=== PATIENT | female | born 1995 | race Caucasian/White ===

== ENCOUNTER 2016-11-16 11:54 | Inpatient (IN) | payer MEDICAID ==
[2016-11-16 12:03] VITALS: O2SAT 100
--- NOTE | 2016-11-16 13:32 | ED PDOC ---
HPI: Psych/Substance Abuse Time Seen by Provider: 11/16/16 12:14 Chief Complaint (Nursing): Psychiatric Evaluation Chief Complaint (Provider): Medication Refill History Per: Patient History/Exam Limitations: no limitations Additional Complaint(s): Kassie Nair, a 21 year old female, with a past medical history of depression and bipolar disorder was sent into the ED from [facility] stating that she wants a refill of the 3 medications she takes for her bipolar disorder. Patient states that she has not taken her medication in a week and can feel herself decompensating. Denies HI/SI ideations. Patient has no other medical complaints and states that she is currently just hungry and thirsty. Past Medical History Reviewed: Historical Data, Nursing Documentation, Vital Signs Vital Signs: Last Vital Signs Temp 98.5 F 11/16/16 11:58 Pulse 72 11/16/16 11:58 Resp 16 11/16/16 11:58 BP 100/58 L 11/16/16 11:58 Pulse Ox 100 11/16/16 11:58 - Medical History PMH: Bipolar Disorder, Depression, Schizophrenia - Family History Family History: States: Unknown Family Hx - Immunization History Hx Tetanus Toxoid Vaccination: No Hx Influenza Vaccination: No Hx Pneumococcal Vaccination: No - Home Medications Home Medications: Ambulatory Orders Medication Instructions Recorded No Known Home Med 11/12/16 - Allergies Allergies/Adverse Reactions: Allergies Allergy/AdvReac Type Severity Reaction Status Date / Time No Known Allergies Allergy Verified 11/12/16 12:49 Review of Systems Constitutional: Negative for: Fever Cardiovascular: Negative for: Chest Pain Respiratory: Negative for: Shortness of Breath Gastrointestinal: Negative for: Abdominal Pain Physical Exam - Reviewed Nursing Documentation Reviewed: Yes Vital Signs Reviewed: Yes - Physical Exam Appears: Positive for: Non-toxic, No Acute Distress Head Exam: Positive for: ATRAUMATIC, NORMAL INSPECTION, NORMOCEPHALIC Skin: Positive for: Normal Color, Warm, Dry Eye Exam: Positive for: Normal appearance, EOMI, PERRL ENT: Positive for: Normal ENT Inspection. Negative for: Nasal Congestion, Pharyngeal Erythema Neck: Positive for: Normal, Painless ROM, Supple Cardiovascular/Chest: Positive for: Regular Rate, Rhythm, Chest Non Tender. Negative for: Tachycardia Respiratory: Positive for: Normal Breath Sounds. Negative for: Rhonchi, Wheezing, Respiratory Distress Gastrointestinal/Abdominal: Positive for: Normal Exam, Bowel Sounds, Soft. Negative for: Tenderness Back: Positive for: Normal Inspection. Negative for: L CVA Tenderness, R CVA Tenderness Extremity: Positive for: Normal ROM. Negative for: Tenderness, Pedal Edema, Deformity, Swelling Neurologic/Psych: Positive for: Alert, Oriented, Gait - Laboratory Results Result Diagrams: 11/16/16 15:10 11/16/16 15:10 - ECG O2 Sat by Pulse Oximetry: 100 (RA) Pulse Ox Interpretation: Normal Medical Decision Making Medical Decision Makin Initial Impression: 21 year old female presenting for medication refill Initial Plan: * crisis evaluation Crisis evaluated patient. Patient will be admitted. Labs ordered Labs normal. Scribe Attestation Documented by Consuelo Kelly acting as a scribe for Stephanie Walters PA-C. Scribe Attestation All medical record entries made by the Scribe were at my direction and personally dictated by me. I have reviewed the chart and agree that the record accurately reflects my personal performance of the history, physical exam, medical decision making, and the department course for this patient. I have also personally directed, reviewed, and agree with the discharge instructions and disposition. Disposition - Clinical Impression Clinical Impression: Schizoaffective disorder, bipolar type - Patient ED Disposition Is Patient to be Admitted: Yes - Disposition Disposition Time: 16:50 Condition: STABLE - Pt Status Changed To: Hospital Disposition Of: Inpatient - Admit Certification Admit to Inpatient:: After my assessment, the patient will require hospitalization for at least two midnights. This is because of the severity of symptoms shown, intensity of services needed, and/or the medical risk in this patient being treated as an outpatient.
[2016-11-16 15:20] LABS: RBC URINE 3 /hpf (0-3); URINE BACTERIA RARE (<OCC); URINE BILIRUBIN NEGATIVE (NEGATIVE); URINE BLOOD NEGATIVE (NEGATIVE); URINE COLOR YELLOW (YELLOW); URINE GLUCOSE (UA) 50 mg/dL (Normal); URINE KETONE NEGATIVE (NEGATIVE); URINE LEUKOCYTE ESTERASE NEG Leu/uL (Negative); URINE PROTEIN 100 mg/dL (NEGATIVE); URINE UROBILINOGEN 0.2-1.0 mg/dL (0.2-1.0); WBC URINE 3 /hpf (0-5)
[2016-11-16 15:23] LABS: BASO # 0.1 K/uL (0.0-0.2); BASO % 0.6 % (0.0-2.0); EOS # 0.1 K/uL (0.0-0.7); EOS % 0.9 % (0.0-4.0); LYMPH # 2.7 K/uL (1.0-4.3); LYMPH % 32.3 % (20.0-40.0); MEAN CELL VOLUME 90.1 fl (81.0-99.0); MEAN CORPUSCULAR HEMOGLOBIN 30.6 pg (27.0-31.0); MEAN CORPUSCULAR HGB CONC 33.9 g/dL (33.0-37.0); MONO # 0.6 K/uL (0.0-0.8); MONO % 7.7 % (0.0-10.0); NEUT # 4.9 K/uL (1.8-7.0); NEUT % 58.5 % (50.0-75.0); NRBC % 0.2 % (0.0-0.0); RED CELL DISTRIBUTION WIDTH 11.7 % (11.5-14.5); WHITE BLOOD COUNT 8.3 K/uL (4.8-10.8)
[2016-11-16 15:35] LABS: ALB/GLOB RATIO 1.3 (1.0-2.1); ALCOHOL SERUM < 10 mg/dl (0-10); ALKALINE PHOSPHATASE 58 U/L (38-126); ALT/SGPT 33 U/L (9-52); AST/SGOT 21 U/L (14-36); BILIRUBIN,TOTAL 0.9 mg/dl (0.2-1.3); BLOOD UREA NITROGEN 12 mg/dl (7-17); CARBON DIOXIDE 22 mmol/L (22-30); CHLORIDE 105 mmol/L (98-107); GFR AFRICAN-AMERICAN > 60; GLUCOSE,RANDOM 115 mg/dL (65-105); POTASSIUM 4.2 MMOL/L (3.6-5.0); SODIUM 139 mmol/l (132-148); TOTAL PROTEIN 7.5 G/DL (6.3-8.2)
[2016-11-16] MEDS ORDERED: Alum-Mag Hydrox-Simethicone Susp (30 mL) PO PRN (20:06)
[2016-11-16] MEDS ORDERED: DiphenhydrAMINE 50 mg/ml Inj IM PRN (20:06)
[2016-11-16] MEDS ORDERED: Magnesium Hydroxide Susp 30 ml UD PO PRN (20:06)
--- NOTE | 2016-11-16 21:06 | PCM.BM ---
<Patricia Pickering - Last Filed: 11/16/16 21:03> Treatment Plan Problems - Problems identified on initial assessmt Altered thought process Date Initiated: 11/16/16 Time Initiated: 21:11 Assessment reference: NA Status: Active Altered Sleep PAttern Date Initiated: 11/16/16 Time Initiated: 21:10 Assessment reference: NA Status: Active Treatment assets and liabiliti Patient Assests: ADL independent, physically healthy, good past tx response Patient Liabilities: live alone - Milieu Protocol Maintain good personal hygiene: daily Encourage regular showers, daily Remind patient to perform daily oral care, daily Assist patient to perform ADL's Maintain personal safety: every shift Educate patient to report safety concerns to staff, every shift Monitor environment for contraband/sharps Medication safety: Monitor for expected outcome, potential side effects: every shift, Assess barriers to learning: daily, Assess readiness for medication education: every shift Family Contact Family involvement: Family/SO is involved Family contact name: Ladarius Rubin -[phone] Discharge/Continuing Care - Education Needs Education Needs: Family Medication, Family Diagnosis/Disease Process, Family Coping Skills, Family Anger Management skills, Family Community resources, Family Activities of Daily Living, Family Pain, Family Health Practices/Safety, Family Personal Hygiene/Grooming, Family Aftercare Safety Plan, Patient Medication, Patient Diagnosis/Disease Process, Patient Coping Skills, Patient Anger Management skills, Patient Community resources, Patient Activities of Daily Living, Patient Pain, Patient Health Practices/Safety, Patient Personal Hygiene/Grooming, Patient Aftercare Safety Plan <HeatherLydia - Last Filed: 11/20/16 10:19> Treatment assets and liabiliti Patient Assests: adapts well, resourceful, ADL independent, physically healthy, good past tx response Patient Liabilities: live alone, poor support system Family Contact Family contact: Patient declines to allow family contact at present Family contact name: Ladarius Rubin -[phone] Family contacted how many times per week?: 1 Family contact comment: Patient has signed a 48 hour notice and is demanding discharge. Patient currently not agreeable to signing consent for family despite encouragement from staff. Psychologist Chief to continue to encourage family involvement for safe discharge planning. - Outside Agency Agency 1 Care involvment: Following patient during stay, Other Agency contact name: Prema Luciano Agency contact number: [phone] - Goals for Treatment Patient goals for treatment: Patient to continue stabilization on 3NP through medication managment and group/supportive therapy. Patient remains internally preoccupied, labile, intrusive and disorganized. Patient to be encouraged to attend 2-5 groups/weekly to develop effective coping skills, improve insight and promote compliance and reality testing. Patient has a 48 hour notice and will be screened by [facility] for involuntary tx. Discharge/Continuing Care - Education Needs Education Needs: Family Medication, Family Diagnosis/Disease Process, Family Coping Skills, Family Aftercare Safety Plan, Patient Medication, Patient Diagnosis/Disease Process, Patient Coping Skills, Patient Community resources, Patient Aftercare Safety Plan - Discharge Discharge Criteria: Tolerates medication w/o severe side effects, Free of Suicidal thoughts, Free of paranoid thoughts, Normal sleep pattern, Ability to care for self, Reduction of target symptoms, Other Discharge to:: Home - Treatment Team Participation Discussed with Family/SO: No Was Patient/Family/SO present at Treatment Team Meeting: No
--- NOTE | 2016-11-17 11:48 | PCM.PSYCH ---
Initial Psychiatric Evaluation - Initial Psychiatric Evaluation Type of Admission: Voluntary Legal Status: Capacity Chief Complaint (in patient's own words): can i go today? Patient's Reaction to Hospitalization: pt asking to leave History of Present Illness and Precipitating Events: 21 yo female with history of bipolar disorder. pt sent to ER from [facility]. apparently on haldol, seroquel, cogentin and depakote. pt apparently was away from her program and not adherent with medications. she return to [facility] and was acting aggressively. she was bizarre and appeared to be internally preoccupied. today she is refusing to engage in conversation. per crisis report: Patient is a 21 y/o , single, no children, resides with her mother. Pt was referred by [facility] due to manic behavior. Pt. was disreptuve, demanding money and food. Pt. was touching other patients, congregational preocuppied speaking negatively about the [employer] congregational, it was internal preocuppied. Pt. is not taking her medication and could not say the name of the medications. Kicking Machine Operator contacted patient's mother who stated that patient was living at her brother's apartment in [place], and returned to [place] as patient was not following up with her treatment. As per Ms. Rubin (patient's mother) Patient started to have aggressive reactions, as she is speaking to her, gets verbally abusive, and not following up with her treatment. Ms. Rubin believes that patient should be admitted for stabilization. Patient reported at time of assessment that she was at [facility] and was referred to the hospital for medication. Pt. denied si/hi , hallucinations or delusions. Pt. is alerted and oriented x3, Pt. is guarded and tense during the assessment , she agreed to sign in for voluntary admission , stating that she would sign in if the doctor recommends admission. Pt. admitted having suicidal Ideations in the past but denied any attempts of hurting herself. As per patient's mother Patient had a suicidal ideation in 2012 with plan to overdose. Current Medications: Active Medications Generic Name Dose Route Start Last Admin Trade Name Freq PRN Reason Stop Dose Admin Acetaminophen 650 mg 11/16/16 20:06 Tylenol 325mg Tab PO Q4 PRN Pain, moderate (4-7) Al Hydrox/Mg Hydrox/Simethicone 30 ml 11/16/16 20:06 Maalox Plus 30 Ml PO Q4 PRN Dyspepsia Diphenhydramine HCl 50 mg 11/16/16 20:06 Benadryl IM Q6 PRN Extrapyramidal S/S Unable PO Diphenhydramine HCl 50 mg 11/16/16 21:16 11/17/16 08:16 Benadryl PO 50 mg HS PRN Administration Insomnia Haloperidol 5 mg 11/16/16 20:06 11/17/16 08:16 Haldol PO 5 mg Q4 PRN Administration Agitation Haloperidol Lactate 5 mg 11/16/16 20:06 Haldol IM Q4 PRN Agitation, Unable to Take PO Lorazepam 2 mg 11/16/16 20:06 Ativan IM Q4 PRN Anxiety/Agitation,Unable PO Lorazepam 1 mg 11/16/16 21:16 11/16/16 21:26 Ativan PO 1 mg Q4 PRN Administration Anxiety/Agitation Magnesium Hydroxide 30 ml 11/16/16 20:06 Milk Of Magnesia PO HS PRN Constipation Past Psychiatric History - Past Psychiatric History Previous Treatment History: Inpatient Prior Professional Help: [facility], [facility] History of Abuse: does not want to give answers History of ETOH/Drug Use: uds is negative History of Family Illness: does not give answers Pertinent Medical Hx (Current Medical&Sleep Prob, Allergies): Allergies Allergy/AdvReac Type Severity Reaction Status Date / Time No Known Allergies Allergy Verified 11/12/16 12:49 Omeprazole [Omeprazole] 20 mg PO DAILY 11/16/16 Review of Systems - Psychiatric Psychiatric: As Per HPI Mental Status Examination - Personal Presentation Personal Presentation: Looks stated age - Affect Affect: Blunted - Motor Activity Motor Activity: Calm - Reliability in Providing Information Reliability in Providing Information: Poor, due to alteration in thoughts, Poor , due to altered mood - Speech Speech: Other (only gives brief answers) - Mood Mood: Depressed, Anxious - Formal Thought Process Formal Thought Process: No Impairment - Obsessions/Compulsions Obsessions: No Compulsions: No - Cognitive Functions Orientation: Person, Place, Situation Sensorium: Alert Attention/Concentration: Easily distracted Abstract Thinking: New Point Estimate of Intelligence: Average Judgement: Intact, as evidence by: Insight regarding need for hospitalization Additional comments: not cooperative - Risk Risk: Diminished functioning - Strength & Assets Inventory Strength & Assets Inventory: Intelligence DSM 5 DX - DSM 5 DSM 5 Diagnosis: bipolar disorder r/o schizoaffective disorder - Recommended/Plan of Treatment Treatment Recommendations and Plan of Treatment: admit to 3np for safety and observation gather collateral information pt agrees to restart prior medications disposition planning hospitalist consult Projected ELOS: 3-5 days Prognosis: fair
--- NOTE | 2016-11-17 18:00 | CP.PCM.CON ---
History of Present Illness - History of Present Illness History of Present Illness: 21 yo female with history of bipolar DO admitted in psyche unit because of aggressive behaviour. Review of Systems - Review of Systems All systems: reviewed and no additional remarkable complaints except (aside from those mentioned above, 12 point system review were negative by me) Past Patient History - Infectious Disease Hx of Infectious Diseases: None - Tetanus Immunizations Tetanus Immunization: Unknown - Past Social History Smoking Status: Never Smoked Alcohol: None Drugs: Denies - CARDIAC Hx Cardiac Disorders: No Hx Hypertension: No - PULMONARY Hx Respiratory Disorders: No Hx Tuberculosis: No - NEUROLOGICAL Hx Neurological Disorder: No HX Cerebrovascular Accident: No Hx Seizures: No - HEENT Hx HEENT Problems: No - RENAL Hx Chronic Kidney Disease: No - ENDOCRINE/METABOLIC Hx Endocrine Disorders: No - HEMATOLOGICAL/ONCOLOGICAL Hx Blood Disorders: No Hx Cancer: No Hx Human Immunodeficiency Virus (HIV): No - INTEGUMENTARY Hx Dermatological Problems: No - MUSCULOSKELETAL/RHEUMATOLOGICAL Hx Musculoskeletal Disorders: No - GASTROINTESTINAL Hx Gastrointestinal Disorders: No - GENITOURINARY/GYNECOLOGICAL Hx Genitourinary Disorders: No Hx Sexually Transmitted Disorders: No - PSYCHIATRIC Hx Anxiety: Yes Hx Bipolar Disorder: Yes Hx Emotional Abuse: ("I don't know") Hx Sexual Abuse: ("I don't know") Hx Substance Use: No - SURGICAL HISTORY Hx Surgeries: No - ANESTHESIA Hx Anesthesia: No Meds Allergies/Adverse Reactions: Allergies Allergy/AdvReac Type Severity Reaction Status Date / Time No Known Allergies Allergy Verified 11/12/16 12:49 - Medications Medications: Current Medications Acetaminophen (Tylenol 325mg Tab) 650 mg PO Q4 PRN PRN Reason: Pain, moderate (4-7) Al Hydrox/Mg Hydrox/Simethicone (Maalox Plus 30 Ml) 30 ml PO Q4 PRN PRN Reason: Dyspepsia Diphenhydramine HCl (Benadryl) 50 mg IM Q6 PRN PRN Reason: Extrapyramidal S/S Unable PO Diphenhydramine HCl (Benadryl) 50 mg PO HS PRN PRN Reason: Insomnia Last Admin: 11/17/16 08:16 Dose: 50 mg Divalproex Sodium (Depakote Er(Once Daily)) 500 mg PO HS PLACIDO Haloperidol (Haldol) 5 mg PO Q4 PRN PRN Reason: Agitation Last Admin: 11/17/16 08:16 Dose: 5 mg Haloperidol Lactate (Haldol) 5 mg IM Q4 PRN PRN Reason: Agitation, Unable to Take PO Lorazepam (Ativan) 2 mg IM Q4 PRN PRN Reason: Anxiety/Agitation,Unable PO Lorazepam (Ativan) 1 mg PO Q4 PRN PRN Reason: Anxiety/Agitation Magnesium Hydroxide (Milk Of Magnesia) 30 ml PO HS PRN PRN Reason: Constipation Quetiapine Fumarate (Seroquel) 50 mg PO HS PLACIDO Physical Exam - Constitutional Appears: No Acute Distress - Head Exam Head Exam: ATRAUMATIC - Eye Exam Eye Exam: absent: Scleral icterus - ENT Exam ENT Exam: Mucous Membranes Moist - Neck Exam Neck exam: Negative for: Meningismus - Respiratory Exam Respiratory Exam: absent: Rhonchi, Wheezes, Respiratory Distress - Cardiovascular Exam Cardiovascular Exam: REGULAR RHYTHM, +S1, +S2 - GI/Abdominal Exam GI & Abdominal Exam: Soft. absent: Tenderness - Rectal Exam Rectal Exam: Deferred - Extremities Exam Extremities exam: Negative for: pedal edema - Back Exam Back exam: NORMAL INSPECTION - Neurological Exam Neurological exam: Alert, Oriented x3 - Psychiatric Exam Psychiatric exam: Normal Affect Results - Vital Signs Recent Vital Signs: Last Vital Signs Temp 97.5 F L 11/17/16 09:00 Pulse 74 11/17/16 09:00 Resp 18 11/17/16 09:00 BP 111/64 11/17/16 09:00 Pulse Ox 100 11/16/16 17:38 - Labs Result Diagrams: 11/16/16 15:10 11/16/16 15:10 Assessment & Plan (1) Aggressive behavior Status: Acute Comment: psyche is managing
[2016-11-17] MEDS: Divalproex 500 mg ER (ONCE DAILY formulation) PO SCH (21:09)
--- NOTE | 2016-11-18 17:33 | PCM.PYCHPN ---
Psychiatric Progress Note - Psychiatric Progress Note Patient seen today, length of contact: chart review case discussed with team Patient Chief Complaint: was at program they told me I need to have my medications stabilized Medical Problems: per chart Diagnostic Results: per psychiatry per medicine per nursing per social work DSM 5 Symptoms Update: vacillations in mood lability in mood Medication Change: No Medical Record Reviewed: Yes Consults ordered or reviewed: pt seen by hospitalist Mental Status Examination - Cognitive Function Orientation: Person, Place, Situation Attention: Poor Concentration: Poor Association: Loose Fund of Knowledge: WNL Decription of patient's judgement and insights: impaired - Mood Mood: Depressed, Anxious - Affect Affect: Blunted - Speech Speech: Pressured - Formal Thought Process Formal Thought Process: No Impairment - Homicidal Ideation Homicidal Ideation: No Goal/Treatment Plan - Goal/Treatment Plan Need for Continued Stay: Remain at risks for inpatient hospitalization, Failed transitioning Progress Toward Problem(s) and Goals/Treatment Plan: inpt milieu pt submitted a 48 hr notice-was explained to patient in both ugandan and slovak the reason , purpose-up until 48 hours to make decision (within and by end of 48 hours) including possible calling of [facility] screeners for possible involuntary admission pt verbalized understanding and submitted signed form and was witnessed by this typewriters functional tester Estimated Date of D/C: 11/23/16 - Smoking Cessation Smoking Cessation Initiated: No Reason for not providing: deferred
[2016-11-18] MEDS: Divalproex 500 mg ER (ONCE DAILY formulation) PO SCH (21:25)
--- NOTE | 2016-11-19 15:09 | PCM.PYCHPN ---
Psychiatric Progress Note - Psychiatric Progress Note Patient seen today, length of contact: chart review case discussed with team Patient Chief Complaint: pt. is reported to have been exhibiting increased energy, walking running about unit, talking fast at times, being intrusive requiring redirection, pt received prns today. pt has submitted 48 hour notice which will end tomorrow early afternoon and defers recinding at the time of this writing. verbally agreeable to have medications adjusted. Problems Identified/Issues Discussed: lability in mood decreased insight and judgment Medical Problems: per chart Diagnostic Results: per psychiatry per medicine per nursing per social work DSM 5 Symptoms Update: continues to be labile requiring redirection and the receipt of prns today per nursing staff Medication Change: Yes ( am seroquel 25mg w/125mg divalproic increase pm dose seroquel to 100mg ) Medical Record Reviewed: Yes Consults ordered or reviewed: pt being followed by hospitalist Mental Status Examination - Cognitive Function Orientation: Person, Place, Situation Attention: Poor Concentration: Poor Association: Loose Fund of Knowledge: WNL Decription of patient's judgement and insights: impaired - Mood Additional comments: labile - Affect Additional comments: labile irritable at times - Speech Speech: Pressured - Formal Thought Process Formal Thought Process: Loosening of associations, Flight of ideas - Homicidal Ideation Homicidal Ideation: No Goal/Treatment Plan - Goal/Treatment Plan Need for Continued Stay: Remain at risks for inpatient hospitalization, Failed transitioning Progress Toward Problem(s) and Goals/Treatment Plan: inpt milieu vital signs and clinical observation per protocol and per status will start seroquel 25mg po am with divalproic acid 125mg and increase pm seroquel to 100mg obtain divalproic acid level in am [id number] with [facility] pt defers recinding 48 hour notice:pt submitted a 48 hr notice-was explained to patient in both [place] and [place] the reason , purpose-up until 48 hours to make decision (within and by end of 48 hours) including possible calling of [facility] screeners for possible involuntary admission pt verbalized understanding and submitted signed form and was witnessed by this database report writer Estimated Date of D/C: 11/23/16
[2016-11-19] MEDS: Divalproex 125 mg DR (BID formulation) PO SCH (16:59)
[2016-11-19] MEDS: Divalproex 500 mg ER (ONCE DAILY formulation) PO SCH (21:13)
[2016-11-20] MEDS: Divalproex 125 mg DR (BID formulation) PO SCH (08:17)
--- NOTE | 2016-11-20 09:49 | PCM.PYCHPN ---
Psychiatric Progress Note - Psychiatric Progress Note Patient seen today, length of contact: discussed with team Patient Chief Complaint: i will go today! Problems Identified/Issues Discussed: pt demanding to leave the hospital. she is running around in circles in the milieu. exposing her breasts to other pts. she continues to touch this brief writer when he tries to talk to the pt to explain the screening process. pt states "i will go when i want to go" she takes medications as prescribed. Medication Change: Yes (increase seroquel, check depakote level) Medical Record Reviewed: Yes Mental Status Examination - Cognitive Function Orientation: Person, Place, Situation Attention: Poor Concentration: Poor Association: Loose Fund of Knowledge: WNL Decription of patient's judgement and insights: poor insight and judgment - Mood Mood: Depressed, Anxious - Affect Affect: Blunted - Speech Speech: Pressured - Formal Thought Process Formal Thought Process: Loosening of associations, Flight of ideas Psychotic Thoughts and Behaviors: grandiose, sexually preoccupied/provocative, disorganized thoughts - Suicidal Ideation Suicidal Ideation: No - Homicidal Ideation Homicidal Ideation: No Goal/Treatment Plan - Goal/Treatment Plan Need for Continued Stay: Remain at risks for inpatient hospitalization, Failed transitioning Progress Toward Problem(s) and Goals/Treatment Plan: bipolar disorder, manic continue current treatment will check depakote and increase dose increase the seroquel disposition planning- 48 hr notice expires today, will screen for involuntary hospitalization as pt is a danger to self secondary to her manic symptoms. Estimated Date of D/C: 11/23/16
[2016-11-20 17:27] VITALS: BP 117/73; PULSE 77; RESP 16; TEMP 98.2
[2016-11-20] MEDS ORDERED: Potassium Chloride 20 mEq ER Tab PO ONE (18:55)
[2016-11-20] MEDS: Divalproex 500 mg ER (ONCE DAILY formulation) PO SCH (21:31)
--- NOTE | 2016-11-20 22:10 | CP.PCM.PN ---
Subjective - Date & Time of Evaluation Date of Evaluation: 11/20/16 Time of Evaluation: 22:06 - Subjective Subjective: Chest X Ray 20/11/16 No Infiltrate nor sign of active disease Ignacio Kim MD Objective - Vital Signs/Intake and Output Vital Signs (last 24 hours): Temp Pulse Resp BP Pulse Ox 98.2 F 77 16 117/73 100 11/20/16 17:00 11/20/16 17:00 11/20/16 17:00 11/20/16 17:00 11/16/16 17:38 - Medications Medications: Current Medications Acetaminophen (Tylenol 325mg Tab) 650 mg PO Q4 PRN PRN Reason: Pain, moderate (4-7) Al Hydrox/Mg Hydrox/Simethicone (Maalox Plus 30 Ml) 30 ml PO Q4 PRN PRN Reason: Dyspepsia Diphenhydramine HCl (Benadryl) 50 mg IM Q6 PRN PRN Reason: Extrapyramidal S/S Unable PO Diphenhydramine HCl (Benadryl) 50 mg PO HS PRN PRN Reason: Insomnia Last Admin: 11/20/16 14:22 Dose: 50 mg Diphenhydramine HCl (Benadryl) 50 mg PO Q6 PRN PRN Reason: Extrapyramidal Symptoms Last Admin: 11/19/16 06:07 Dose: 50 mg Divalproex Sodium (Depakote Er(Once Daily)) 500 mg PO HS [facility] Last Admin: 11/20/16 21:31 Dose: 500 mg Divalproex Sodium (Depakote Dr(*Bid*)) 125 mg PO DAILY [facility] Last Admin: 11/20/16 08:17 Dose: 125 mg Haloperidol (Haldol) 5 mg PO Q4 PRN PRN Reason: Agitation Last Admin: 11/20/16 14:23 Dose: 5 mg Haloperidol Lactate (Haldol) 5 mg IM Q4 PRN PRN Reason: Agitation, Unable to Take PO Lorazepam (Ativan) 2 mg IM Q4 PRN PRN Reason: Anxiety/Agitation,Unable PO Lorazepam (Ativan) 1 mg PO Q4 PRN PRN Reason: Anxiety/Agitation Last Admin: 11/20/16 14:22 Dose: 1 mg Magnesium Hydroxide (Milk Of Magnesia) 30 ml PO HS PRN PRN Reason: Constipation Quetiapine Fumarate (Seroquel) 50 mg PO DAILY [facility] Quetiapine Fumarate (Seroquel) 150 mg PO [facility] Last Admin: 11/20/16 21:31 Dose: 150 mg
--- NOTE | 2016-11-21 10:53 | RAD ---
HISTORY: [place] [facility]PARISON: None available. FINDINGS: LUNGS: No infiltrate is appreciated with bronchovascular markings appearing unremarkable grossly. PLEURA: No significant pleural effusion identified, no pneumothorax apparent. CARDIOVASCULAR: Normal. OSSEOUS STRUCTURES: No significant abnormalities. VISUALIZED UPPER ABDOMEN: Normal. OTHER FINDINGS: None. IMPRESSION: No definite acute cardiopulmonary disease appreciated this time.
== END 2016-11-21 02:32 | DRG 430 ==
LOC: H.ER 11:54 → H.ERHOLD 16:50 → H.PSYCH 18:58
PROVIDERS: ADMIT Psychiatry & Neurology Psychiatry; ATTEND Psychiatry & Neurology Psychiatry
PROC: GZHZZZZ Group Psychotherapy (ICD-10-PCS; principal; 2016-11-16)
DX: F31.9 Bipolar disorder, unspecified (principal)

== ENCOUNTER 2017-05-09 16:55 | Emergency (ER) | payer MEDICAID ==
[2017-05-09 17:49] VITALS: BP 106/65; PULSE 62; RESP 16; TEMP 98.1; O2SAT 98
--- NOTE | 2017-05-09 18:37 | ED PDOC ---
HPI: Psych/Substance Abuse Time Seen by Provider: 05/09/17 18:07 Chief Complaint (Nursing): Psychiatric Evaluation Chief Complaint (Provider): Medication Refill History Per: Patient History/Exam Limitations: no limitations Suicide/Self Injury Attempted (Context): None Additional Complaint(s): Patient is a 22 year old female with a medical history of psychosis who presents stating she was sent by [facility] for medication refill. Patient lost her Rx for Zyprexa 15mg and Trileptal 600mg medication ( last filled on 04/17/17) and has not had either medication since 05/06/17. Patient denies any symptoms at present, including SI, HI, and hallucinations. Patient states she has an upcoming appointment with Dr Crisostomo on 05/15/17, however Medicaid will not fill any prescriptions for her until 05/18/17, which prompted ED visit. Otherwise: (-) fever (-) AMS. Past Medical History Reviewed: Historical Data, Nursing Documentation, Vital Signs Vital Signs: Last Vital Signs Temp 98.1 F 05/09/17 17:44 Pulse 62 05/09/17 17:44 Resp 16 05/09/17 17:44 BP 106/65 05/09/17 17:44 Pulse Ox 98 05/09/17 17:44 - Medical History PMH: Anxiety, Bipolar Disorder, Depression, Schizophrenia Denies: Diabetes, Hepatitis, HIV, HTN, Chronic Kidney Disease, Seizures, Sexually Transmitted Disease - Surgical History Surgical History: No Surg Hx - Family History Family History: States: Unknown Family Hx - Living Arrangements Living Arrangements: With Family - Social History Current smoker - smoking cessation education provided: No Alcohol: None Drugs: Denies - Home Medications Home Medications: Ambulatory Orders Medication Instructions Recorded Omeprazole [Omeprazole] 20 mg PO DAILY 11/16/16 Zolpidem Tartrate 5 mg PO HS 12/09/16 risperiDONE [RisperDAL] 2 mg PO BID 12/09/16 Divalproex Sodium [Divalproex 500 mg PO BID #60 tab.er.24h 12/20/16 Sodium ER] Sertraline [Zoloft] 100 mg PO DAILY #30 tab 12/20/16 risperiDONE [RisperDAL Tab] 2 mg PO HS #30 tab 12/20/16 traZODone [Desyrel] 100 mg PO HS PRN #30 tab 12/20/16 - Allergies Allergies/Adverse Reactions: Allergies Allergy/AdvReac Type Severity Reaction Status Date / Time No Known Allergies Allergy Verified 05/09/17 17:44 Physical Exam - Reviewed Nursing Documentation Reviewed: Yes Vital Signs Reviewed: Yes - Physical Exam Appears: Positive for: Well, Non-toxic, In Acute Distress Head Exam: Positive for: NORMOCEPHALIC Skin: Positive for: Normal Color, Warm, Dry Eye Exam: Positive for: Normal appearance. Negative for: Nystagmus, Conjunctival injection ENT: Positive for: Pharynx Is (clear). Negative for: Pharyngeal Erythema, Tonsillar Swelling Neck: Positive for: Painless ROM, Supple Cardiovascular/Chest: Positive for: Regular Rate, Rhythm Respiratory: Positive for: Normal Breath Sounds. Negative for: Decreased Breath Sounds, Respiratory Distress Gastrointestinal/Abdominal: Positive for: Soft. 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 Negative for: Motor/Sensory Deficits, Aphasia, Facial Droop - ECG O2 Sat by Pulse Oximetry: 98 (RA) Pulse Ox Interpretation: Normal Medical Decision Making Medical Decision Making: Initial impression: medication refill Consult to CRISIS placed @ 1900. On re-evaluation, at 1930 CRISIS at bedside. Patient has no complaints at this time. CRISIS pending consult with house psychiatrist. On re-eval @ 1999, patient found to have eloped ED. Attempts by ED staff to locate patient unsuccessful. Disposition - Clinical Impression Clinical Impression: Encounter for medication refill - Patient ED Disposition Is Patient to be Admitted: No - Disposition Disposition: Eloped Disposition Time: 20:00 Condition: STABLE Forms: [facility] (Georgian)
== END 2017-05-09 20:42 | disposition home or self-care (01) ==
LOC: H.ER 16:55
DX: Z76.0 Encounter for issue of repeat prescription (principal); F20.9 Schizophrenia, unspecified; F31.9 Bipolar disorder, unspecified; F41.9 Anxiety disorder, unspecified